=== PATIENT | male | born 1995 | race Hispanic/Latino ===

== ENCOUNTER 2021-05-26 20:21 | Emergency (ER) | payer OTHER ==
[~2021-05-26] VITALS: Ht 165.1 cm; Wt 78.0 kg
[2021-05-26] MEDS ORDERED: AZIT1PAC PO (23:53)
[2021-05-26] MEDS ORDERED: GUAI-1274 PO (23:53)
[2021-05-26] MEDS ORDERED: IBUP-1493 PO (23:53)
[2021-05-26] MEDS: IBUPROFEN 800 MG TAB ONE (23:59)
[2021-05-26] MEDS: CEFTRIAXONE 1G VIAL IM STA (23:59)
[2021-05-27] VITALS: BP 135/86
== END 2021-05-27 00:24 ==
LOC: EDH 20:21
DX: J06.9 Acute upper respiratory infection, unspecified (principal); Z20.822 Contact with and (suspected) exposure to COVID-19
CPT/HCPCS: 71045; 87635; 87804 ×2; 87880; 96372; 99284; C9803; J0696